=== PATIENT | male | born 1955 | race Two or more races ===

== ENCOUNTER 2018-05-20 06:13 | Day surgery (SDC) | payer OTHER ==
[~2018-05-20] VITALS: Ht 167.6 cm; Wt 88.9 kg
[2018-05-20 06:57] VITALS: BP 130/82
[2018-05-20 08:58] VITALS: BP 110/69
== END 2018-05-20 09:30 | disposition home or self-care (01) ==
LOC: DS 06:13 → OR 07:30 → GI 07:30 → DS 09:30
PROVIDERS: Internal Medicine Gastroenterology
PROC: 0DBP8ZZ Excision of Rectum, Via Natural or Artificial Opening Endoscopic (ICD-10-PCS; principal; 2018-05-20 07:30)
DX: Z12.11 Encounter for screening for malignant neoplasm of colon (principal); K57.30 Diverticulosis of large intestine without perforation or abscess without bleeding; K62.1 Rectal polyp; K64.8 Other hemorrhoids; K59.09 Other constipation; K21.9 Gastro-esophageal reflux disease without esophagitis; Z68.33 Body mass index [BMI] 33.0-33.9, adult; Z86.010 Personal history of colon polyps
CPT/HCPCS: 45378; J1200; J1610; J2250; J2310; J3010; J3490

== ENCOUNTER 2018-09-19 19:39 | Emergency (ER) | payer OTHER ==
[~2018-09-19] VITALS: Ht 162.6 cm; Wt 92.5 kg
[2018-09-19 19:46] VITALS: Ht 162.6 cm; Wt 92.5 kg
[2018-09-19 21:46] VITALS: BP 133/81
== END 2018-09-19 21:46 | disposition home or self-care (01) ==
LOC: EDBD 19:39 → ED 19:39
DX: S61.305A Unspecified open wound of left ring finger with damage to nail, initial encounter (principal); W26.0XXA Contact with knife, initial encounter; Y93.89 Activity, other specified; Y92.89 Other specified places as the place of occurrence of the external cause; Y99.8 Other external cause status
CPT/HCPCS: 90715